=== PATIENT | female | born 1965 | race Caucasian/White ===

== ENCOUNTER 2016-05-22 07:41 | Emergency (ER) | payer BC ==
[~2016-05-22] VITALS: Ht 163.8 cm; Wt 63.3 kg
[~2016-05-22 07:41] MED LIST: IBUP600T44 PO; MULT-506 PO
[2016-05-22 07:42] VITALS: TEMP 36.4; Ht 163.8 cm; Wt 63.3 kg
[2016-05-22] MEDS ORDERED: SODIUM CHLORIDE 0.9% 1000ML 1,000 ML IV STA ×2 (08:01)
[2016-05-22 08:30] LABS: URINE APPEARANCE CLOUDY (CLEAR); URINE BILIRUBIN NEG (NEG); URINE COLOR DK YELLOW; URINE NITRITE NEG (NEG); URINE PH 5.5 (4.5-7.5); UROBILINOGEN NEG (NEG)
[2016-05-22 08:34] LABS: MANUAL MICROSCOPIC REQUIRED? NO; REVIEW REQ? NO
[2016-05-22 08:55] LABS: BASO % 0.2 %; BASO ABS # 0.01 K/uL (0-0.2); COMPLETE YES; EOS % 0.7 %; HEMATOCRIT 39.3 % (37-47); LYMPH % 21.2 %; LYMPH ABS # 0.93 K/uL (1.2-3.4); MEAN CELL VOLUME 87.7 fL (80-100); MEAN CORPUSCULAR HEMOGLOBIN 30.6 pg (25-34); MEAN CORPUSCULAR HGB CONC 34.9 g/dl (32-36); MEAN PLATELET VOLUME 9.2 fL (7.4-10.4); MONO % 6.8 %; NEUT % 71.1 %; PLATELET COUNT 305 K/uL (130-400); RED BLOOD COUNT 4.48 M/uL (4.2-5.4); WHITE BLOOD COUNT 4.38 K/uL (4.8-10.8)
[2016-05-22 09:01] LABS: PREG INTERNAL NEGATIVE QC NEG CLEAR BACKGROUND; PREG INTERNAL POSITIVE QC POS CONTROL LINE
[2016-05-22 09:14] LABS: BUN/CREATININE RATIO 9.2 (10-20); CALCIUM 9.1 mg/dl (8.5-10.1); POTASSIUM 3.7 mmol/L (3.5-5.1)
--- NOTE | 2016-05-22 10:33 | DIAGNOSTIC IMAGING REPORT ---
ULTRASOUND KIDNEYS AND BLADDER CLINICAL HISTORY: Right flank pain. Hematuria. COMPARISON STUDY: No priors. TECHNIQUE: Real-time, grayscale, and color flow sonography of the kidneys and bladder is performed. Images are reviewed in the transverse and longitudinal planes. FINDINGS: Kidneys: The kidneys are normal in size and echotexture. The right kidney measures 10.3 x 4.6 x 5.5 cm and the left kidney measures 10.8 x 4.0 x 4.6 cm. There is no hydronephrosis. No shadowing renal calculi are identified. There is no sonographic evidence of contour deforming renal mass lesion. No perinephric fluid is identified. Bladder: The bladder is normal in appearance. The right ureteral jet was seen. Uterine fibroids are incidentally noted. IMPRESSION: 1. The kidneys are normal in size and without hydronephrosis. 2. The bladder was normal as visualized. Electronically signed by: Aiden Perez M.D. 05/22/2016 10:32 AM Dictated Date/Time: 05/22/2016 10:31 AM
--- NOTE | 2016-05-22 10:40 | DIAGNOSTIC IMAGING REPORT ---
KUB CLINICAL HISTORY: Right flank pain. Hematuria. FINDINGS: 2 AP abdominal radiographs are correlated with renal ultrasound performed the same day 05/22/2016. There is a nonobstructed abdominal bowel gas pattern. Mild colonic fecal retention is observed. An indeterminant 8mm calcification is seen in the right hemipelvis. A phlebolith is noted in the left hemipelvis. A 5 mm calculus projects over the left kidney may represent a nonobstructing kidney stone. The bony structures appear intact. IMPRESSION: 1. An 8 mm ovoid calcification projects over the right hemipelvis. This is indeterminant and may represent a distal ureteral stone or possibly a large phlebolith. Clinical correlation will be required. 2. Suspect a nonobstructing left renal calculus. 3. Nonobstructed abdominal bowel gas pattern. Electronically signed by: Aiden Perez M.D. 05/22/2016 10:38 AM Dictated Date/Time: 05/22/2016 10:36 AM
[2016-05-22] MEDS ORDERED: HYDR-5688 PO (11:25)
[2016-05-22] MEDS ORDERED: ONDA4TAB10 SL (11:25)
--- NOTE | 2016-05-22 11:25 | EMERGENCY ROOM VISIT NOTE ---
History First contact with patient: 07:46 Chief Complaint: ABDOMINAL PAIN Stated Complaint: BAD PAIN AROUND KIDNEY Nursing Triage Summary: pt. states she has urinary pain and right sided flank pain that cleared up on the way to hospital, states her pain was a 9/10 prior to getting in car on the way here History of Present Illness Patient is an otherwise healthy 50-year-old white female who presents to emergency department for evaluation of right low back pain with associated urinary symptoms. She states that she noticed some vaginal/urinary burning, with and without urination for the last couple of days. She notes urinary urgency as well. This morning, she states that she developed some right low back pain. It was initially dull and achy, but steadily became more intense and was sharp, stabbing and made her feel nauseous. At its worst she would've rated the pain a 9/10. She states that it began to subside on the drive to the emergency department and presently she states that her pain is a 1/10. She reports a remote history of a kidney stone roughly 20 years ago , she was at the time. She denies noticing any hematuria. She is not had a fever. She denies any abdominal pain. There is been no vomiting or diarrhea. She denies any prior history of GI problems. No history of abdominal surgeries. Last menstrual period was one week ago. Review of Systems Review of systems as per HPI. All other systems reviewed were negative. 10 systems reviewed. Past Medical/Surgical History Medical Problems: (1) Lumbar strain (2) No Known Active Medical Problems (3) No significant past medical history Surgical Problems: (1) No significant past surgical history Electronic medical records are reviewed and summarized as above/below. See Problem List. Social History Smoking Status: Never Smoker Alcohol Use: occasionally Marital Status: Housing Status: lives with family Occupation Status: employed Current/Historical Medications Scheduled PRN Hydrocodone/Acetaminophen 5MG/325MG (Natick 5MG/325MG), 1-2 TABLETS PO Q4 PRN for Pain Ondasetron Odt (Zofran Odt), 4 MG SL Q6H PRN for Nausea or Vomiting Allergies Coded Allergies: No Known Allergies (Unverified , 05/22/16) Physical Exam Vital Signs Date Time Temp Pulse Resp B/P Pulse Ox O2 Delivery O2 Flow Rate FiO2 05/22/16 11:44 55 14 136/78 98 05/22/16 10:47 59 14 144/90 96 Room Air 05/22/16 09:00 57 14 162/87 98 Room Air 05/22/16 07:42 36.4 64 16 156/95 100 Room Air Physical Exam CONSTITUTIONAL: Patient is a pleasant, well-appearing 50-year-old white female who is awake and alert and in no acute distress. EYES: Pupils equal, round, reactive to light and accommodation. EOMs intact without nystagmus. Sclera are anicteric. ENT: Tympanic membranes intact, with normal landmarks. External canals are clear. Oral and nasopharynx are clear. Mucous membranes are moist, no lesions , tongue and gums appear normal. NECK: No bruits auscultated. Supple without lymphadenopathy. No thyromegaly. No meningeal signs. Full active range of motion without discomfort. CARDIOVASCULAR: Regular rate and rhythm, with normal S1 and S2, no murmur or gallop or rub is heard. No carotid bruits auscultated. No JVD. Peripheral pulses easily palpable. RESPIRATORY: Breath sounds equal and clear to auscultation without wheezes, rales, or rhonchi heard. Full and equal chest expansion without accessory muscle use or retractions. ABDOMEN: Bowel sounds are present. Abdomen is soft, nontender and nondistended. There is no guarding, rebound or rigidity. No pain in the right lower quadrant over McBurney's point. No CVA tenderness. INTEGUMENTARY: No lesions or rash, normal skin turgor. LYMPH: No lymphadenopathy. Medical Decision & Procedures ER Provider Diagnostic Interpretation: KUB CLINICAL HISTORY: Right flank pain. Hematuria. FINDINGS: 2 AP abdominal radiographs are correlated with renal ultrasound performed the same day 05/22/2016. There is a nonobstructed abdominal bowel gas pattern. Mild colonic fecal retention is observed. An indeterminant 8mm calcification is seen in the right hemipelvis. A phlebolith is noted in the left hemipelvis. A 5 mm calculus projects over the left kidney may represent a nonobstructing kidney stone. The bony structures appear intact. IMPRESSION: 1. An 8 mm ovoid calcification projects over the right hemipelvis. This is indeterminant and may represent a distal ureteral stone or possibly a large phlebolith. Clinical correlation will be required. 2. Suspect a nonobstructing left renal calculus. 3. Nonobstructed abdominal bowel gas pattern. ULTRASOUND KIDNEYS AND BLADDER CLINICAL HISTORY: Right flank pain. Hematuria. COMPARISON STUDY: No priors. TECHNIQUE: Real-time, grayscale, and color flow sonography of the kidneys and bladder is performed. Images are reviewed in the transverse and longitudinal planes. FINDINGS: Kidneys: The kidneys are normal in size and echotexture. The right kidney measures 10.3 x 4.6 x 5.5 cm and the left kidney measures 10.8 x 4.0 x 4.6 cm. There is no hydronephrosis. No shadowing renal calculi are identified. There is no sonographic evidence of contour deforming renal mass lesion. No perinephric fluid is identified. Bladder: The bladder is normal in appearance. The right ureteral jet was seen. Uterine fibroids are incidentally noted. IMPRESSION: 1. The kidneys are normal in size and without hydronephrosis. 2. The bladder was normal as visualized. Laboratory Results 05/22/16 08:25 Red Blood Count 4.48, Mean Corpuscular Volume 87.7, Mean Corpuscular Hemoglobin 30.6, Mean Corpuscular Hemoglobin Concent 34.9, Mean Platelet Volume 9.2, Neutrophils (%) (Auto) 71.1, Lymphocytes (%) (Auto) 21.2, Monocytes (%) (Auto) 6.8, Eosinophils (%) (Auto) 0.7, Basophils (%) (Auto) 0.2, Neutrophils # (Auto) 3.11, Lymphocytes # (Auto) 0.93, Monocytes # (Auto) 0.30, Eosinophils # (Auto) 0.03, Basophils # (Auto) 0.01 05/22/16 08:25 Test 05/22/16 07:50 05/22/16 08:25 Urine Color DK YELLOW Urine Appearance CLOUDY (CLEAR) Urine pH 5.5 (4.5-7.5) Urine Specific [place] 1.020 (1.000-1.030) Urine Protein 2+ (NEG) Urine Glucose (UA) NEG (NEG) Urine Ketones 1+ (NEG) Urine Occult Blood 3+ (NEG) Urine Nitrite NEG (NEG) Urine Bilirubin NEG (NEG) Urine Urobilinogen NEG (NEG) Urine Leukocyte Esterase TRACE (NEG) Urine WBC (Auto) 1-5 /hpf (0-5) Urine RBC (Auto) >30 /hpf (0-4) Urine Hyaline Casts (Auto) 1-5 /lpf (0-5) Urine Epithelial Cells (Auto) 10-20 /lpf (0-5) Urine Bacteria (Auto) NEG (NEG) Urine Test NEG (NEG) White Blood Count 4.38 K/uL (4.8-10.8) Red Blood Count 4.48 M/uL (4.2-5.4) Hemoglobin 13.7 g/dL (12.0-16.0) Hematocrit 39.3 % (37-47) Mean Corpuscular Volume 87.7 fL (80-100) Mean Corpuscular Hemoglobin 30.6 pg (25-34) Mean Corpuscular Hemoglobin Concent 34.9 g/dl (32-36) Platelet Count 305 K/uL (130-400) Mean Platelet Volume 9.2 fL (7.4-10.4) Neutrophils (%) (Auto) 71.1 % Lymphocytes (%) (Auto) 21.2 % Monocytes (%) (Auto) 6.8 % Eosinophils (%) (Auto) 0.7 % Basophils (%) (Auto) 0.2 % Neutrophils # (Auto) 3.11 K/uL (1.4-6.5) Lymphocytes # (Auto) 0.93 K/uL (1.2-3.4) Monocytes # (Auto) 0.30 K/uL (0.11-0.59) Eosinophils # (Auto) 0.03 K/uL (0-0.5) Basophils # (Auto) 0.01 K/uL (0-0.2) RDW Standard Deviation 41.0 fL (36.4-46.3) RDW Coefficient of Variation 12.7 % (11.5-14.5) Immature Granulocyte % (Auto) 0.0 % Immature Granulocyte # (Auto) 0.00 K/uL (0.00-0.02) Anion Gap 8.0 mmol/L (3-11) Est Creatinine Clear Calc Drug Dose 60.6 ml/min Estimated GFR () 77.2 Estimated GFR (Non- 66.6 BUN/Creatinine Ratio 9.2 (10-20) Calcium Level 9.1 mg/dl (8.5-10.1) Total Bilirubin 0.5 mg/dl (0.2-1) Aspartate Amino Transf (AST/SGOT) 26 U/L (15-37) Alanine Aminotransferase (ALT/SGPT) 29 U/L (12-78) Alkaline Phosphatase 82 U/L (45-117) Total Protein 7.6 gm/dl (6.4-8.2) Albumin 3.8 gm/dl (3.4-5.0) Globulin 3.8 gm/dl (2.5-4.0) Albumin/Globulin Ratio 1.0 (0.9-2) Lipase 70 U/L (73-393) Medications Administered Medications (Trade) Dose Ordered Sig/Raquel Route Start Time Stop Time Status Last Admin Dose Admin Sodium Chloride 1,000 ml @ 999 mls/hr Q1H1M STAT IV 05/22/16 08:01 05/22/16 09:01 DC 05/22/16 08:25 999 MLS/HR Sodium Chloride (Nss 1000ml) 1,000 ml @ 250 mls/hr Q4H STAT IV 05/22/16 08:01 05/22/16 12:00 DC 05/22/16 08:25 250 MLS/HR ED Course The patient was seen and evaluated as above. She was able to provide a urine sample which was dipped and noted 250 of blood, trace leukocytes were noted. IV access was obtained. CBC, CMP, lipase and urinalysis were ordered. Urine microscopy confirmed hematuria. No white blood cells, bacteria or nitrates to suspect infection. Given her flank pain with associated hematuria, I was suspicious for a kidney stone, however the patient was completely pain-free and she may have passed the stone, given this I elected to perform a KUB and a retroperitoneal ultrasound. Rate of the patient's laboratory studies were unremarkable. White count is not elevated. Electrolytes and renal functions are normal. Liver functions and lipase are not elevated. KUB noted an 8 mm ovoid calcification in the right hemipelvis, indeterminate in nature could represent a distal ureteral stone or possibly a large phlebolith. There was a nonobstructing left renal calculus noted. Bowel gas pattern was nonobstructive. Retroperitoneal ultrasound was essentially unremarkable. The kidneys were normal in size. No hydronephrosis was noted. Bilateral ureteral jets were identified. The patient was reassessed. She remained pain-free. All laboratory and diagnostic imaging studies were reviewed his her. Based on her diagnostic imaging studies I suspect she passed a right-sided stone. Labs including renal function are normal. Urine is not indicative of superimposed infection. Further diagnostic imaging with a CT scan to potentially characterize the right lower quadrant findings noted on KUB were discussed with the patient, but it was not felt that they were medically necessary and the patient was in agreement. Patient was issued a urine strainer. Kidney stone instructions were discussed. She was given prescriptions for hydrocodone and Zofran to use as needed. She was educated on the worrisome signs or symptoms for which she should return to the emergency department including worsening pain, fevers or vomiting. Differential diagnoses entertained included UTI, pyelonephritis, renal colic, appendicitis, bowel obstruction, acute cholecystitis, cholelithiasis, biliary colic, perforation, mass or malignancy, , ectopic , PID, tubo- ovarian abscess, ruptured ovarian cyst, ovarian torsion, shingles, musculoskeletal pain, among others. Medical Decision See ED course. Impression Primary Impression: Right flank pain Additional Impression: Hematuria Departure Information Prescriptions Ondasetron Odt (ZOFRAN ODT) 4 Mg Tab 4 MG SL Q6H Y for Nausea or Vomiting, #20 TAB Prov: Betty Garcia PA 05/22/16 Hydrocodone/Acetaminophen 5MG/325MG (Natick 5MG/325MG) Tab 1-2 TABLETS PO Q4 Y for Pain, #15 TAB For Initial Treatment Prov: Betty Garcia PA 05/22/16 Referrals Cindi Rapp M.D. (PCP) Patient Instructions My [facility] Additional Instructions DO NOT drive, drink alcohol, operate machinery, or perform dangerous activities today. You were given medications in the ER that can affect your ability to safely function or operate a vehicle. Hydrocodone/Acetaminophen (Natick) 5/325 mg: Take 1-2 pills every four hours for breakthrough pain. Avoid alcohol, operating machinery or dangerous equipment, working on ladders or roofs, DRIVING, or situations where being under the influence may be dangerous. It is recommended to use an [id number] stool softener such as Colace, 100mg twice daily while taking this medication to avoid constipation. Zofran(odansetron) tablets 4mg: Take one and allow it to dissolve in your mouth every four to six hours as needed for nausea or vomiting. Ibuprofen(Motrin, Advil) may be used for fever or pain. Use 600mg every six hours as needed. Take with food. Avoid using more than 2400mg in a 24 hour period. Do not use 2400mg per day for more than three consecutive days without physician direction. Prolonged inappropriate use can lead to stomach upset or ulcers. This medication can be taken if you need to drive, work, or perform activities which may be dangerous when taking narcotic pain medication. (AND/OR) Acetaminophen(Tylenol) may be used for fever or pain. Use 1000mg every six hours as needed. Avoid using more than 4000mg in a 24 hour period. This medication can be taken if you need to drive, work, or perform activities which may be dangerous when taking narcotic pain medication. Strain your urine and collect all the stones or debris for your doctor. Rest and avoid strenuous activity until your stone passes and symptoms resolve. Drink plenty of fluids. Continue current medications. Return to the ER for worsening abdominal or back pain, vomiting, fevers, passing out, or as needed. Follow up with your primary care provider next week. Problem Qualifiers
[2016-05-22 11:44] VITALS: BP 136/78; PULSE 55; O2SAT 98
== END 2016-05-22 11:46 | disposition home or self-care (01) ==
LOC: C.EDB 07:42
DX: R10.9 Unspecified abdominal pain (principal); R31.9 Hematuria, unspecified

== ENCOUNTER → 2017-05-20 | Outpatient (CLI) | payer BC ==
--- NOTE | 2017-05-28 07:20 | MAMMOGRAPHY REPORT ---
BILATERAL DIGITAL SCREENING MAMMOGRAM TOMOSYNTHESIS WITH CAD: 05/20/2017 CLINICAL HISTORY: Routine screening. Patient has no complaints. TECHNIQUE: Breast tomosynthesis in addition to standard 2D mammography was performed. Current study was also evaluated with a Computer Aided Detection (CAD) system. COMPARISON: Mammograms from [facility] dated 05/07/2014, and prior mammogram from [facility] dated 06/06/2008. BREAST COMPOSITION: The tissue of both breasts is heterogeneously dense, which may obscure small mas ses. FINDINGS: There is a stable loose grouping of approximately 3 punctate microcalcifications of the lat eral left breast. Stable asymmetry in the far posterior left breast along the posterior nipple line on the CC view. No suspicious mass, architectural distortion or cluster of microcalcifications is se en. IMPRESSION: ACR BI-RADS CATEGORY 1: NEGATIVE There is no mammographic evidence of malignancy. A 1 year screening mammogram is recommended. The pa tient will receive written notification of the results. Approximately 10% of breast cancers are not detected with mammography. A negative mammographic report should not delay biopsy if a clinically suggestive mass is present. Leandra Lopez M.D. ay/:05/27/2017 11:37:25 Industrial Relations Analyst: Erica JORDAN(Betsey)(Alex), [facility] letter sent: Normal 1/2 BI-RADS Code: ACR BI-RADS Category 1: Negative
== END | disposition home or self-care (01) ==
LOC: C.MAMM 13:57
PROVIDERS: ATTEND Family Medicine
DX: Z12.31 Encounter for screening mammogram for malignant neoplasm of breast (principal)